=== PATIENT | male | born 1975 | race Caucasian/White ===

== ENCOUNTER 2016-03-01 14:25 | Emergency (ER) | payer OTHER ==
[2016-03-01 17:10] LABS: SPECIFIC GRAVITY 1.025 (1.001-1.030); URINE BILIRUBIN NEGATIVE (NEGATIVE); URINE BLOOD NEGATIVE (NEGATIVE); URINE GLUCOSE (UA) NEGATIVE (NEGATIVE); URINE LEUKOCYTE ESTERASE NEGATIVE (NEGATIVE); URINE NITRITE NEGATIVE (NEGATIVE); URINE PROTEIN NEGATIVE (NEGATIVE); URINE UROBILINOGEN 1 mg/dL (0-1 mg/dl)
[2016-03-01 17:12] LABS: URINE APPEARANCE CLEAR; URINE COLOR AMBER
--- NOTE | 2016-03-01 17:18 | CT ---
Exam Type: ABD/PELVIS W/O CON Date and Time: 03/01/2016 4:51 PM Clinical information: Umbilical pain after lifting injury. Comparison: 08/25/2015. Procedure: Imaging device: [employer] Aquilion [address] scanner 1 mm axial images were obtained through the abdomen and pelvis. Stacked reconstructed 3, 4 and 5 mm images were photographed in the axial coronal and sagittal planes. No oral contrast was utilized for this examination. Exam: Without intravenous contrast. FINDINGS: Lung bases:The visualized lung bases appear to be appropriate with no mass, effusion or consolidation visualized. Liver: the liver is homogeneous with no discrete abnormality visualized. No definite findings of biliary dilatation are observed. Spleen: The spleen is homogeneous and does not appear to be enlarged. Gallbladder: Contracted. Pancreas: Normal without enlargement or evidence of adjacent inflammatory changes. Adrenal glands: Normal without enlargement or evidence of adjacent inflammatory changes. Abdominal aorta: The aorta is of normal caliber and appears to be without significant atherosclerotic disease. Kidneys: The kidneys appear to be symmetric in size with no perinephric inflammatory changes are identified. No current findings of hydronephrosis are seen. No evidence of an intrarenal or intraureteral calculus is visualized. Bowel structures: The visualized bowel is of normal caliber without evidence of dilatation or obstruction. No free fluid or mesenteric inflammatory changes are identified. Appendix: The appendix is well-visualized and appears to be of normal caliber. No periappendiceal inflammatory changes or CT findings of appendicitis are currently observed. Bladder: Partially decompressed. There is secondary accentuation of the bladder wall. Hernia: A small fat filled left inguinal hernia suggested. There is also a fat filled umbilical hernia with the aperture measuring approximately 14 mm transversely. Adenopathy: No significant enlarged adenopathy is visualized. Osseous structures: Multilevel lumbar degenerative changes are present with endplate Schmorl's node formation. Pelvic structures: No discrete pelvic abnormalities are visualized in this examination. IMPRESSION: 1. No evidence of an intrarenal or intraureteral calculus observed. 2. A normal appearance of the appendix without CT evidence of appendicitis. 3. Small fat filled left inguinal and umbilical hernias. 4. Multilevel lumbar discogenic degenerative changes. 5. Circumferential thickening of the bladder wall likely due to partial decompression.
== END 2016-03-01 17:51 | disposition home or self-care (01) ==
LOC: ED 14:25
DX: K42.9 Umbilical hernia without obstruction or gangrene (principal); Z87.891 Personal history of nicotine dependence

== ENCOUNTER 2016-06-08 07:42 | Day surgery (SDC) | payer OTHER ==
[~2016-06-08 07:42] MED LIST: CEFAZOLIN SODIUM 2 GRAM PREMIX 100 ML IV ONE; CEFAZOLIN SODIUM 2 GRAM PREMIX 100 ML IV PRN; IV START KIT ONE; LACTATED RINGERS 1,000 ML ONE
[2016-06-08] MEDS ORDERED: MIDAZOLAM HCL 1 MG/ML 2ML VIAL ONE (07:57)
[2016-06-08] MEDS ORDERED: SUCCINYLCHOLINE CHL 20 MG/ML DOSE ONE (07:57)
[2016-06-08] MEDS ORDERED: FENTANYL 100 MCG/2 ML VIAL ONE ×3 (07:57→09:58)
[2016-06-08] MEDS ORDERED: LIDOCAINE 2% (PRES FREE) 5 ML VIAL ONE ×2 (07:57→10:35)
[2016-06-08] MEDS ORDERED: PROPOFOL 40 ML IV ONE (07:57)
[2016-06-08] MEDS ORDERED: PHENYLEPHRINE 10 MG/1 ML (1%) VIAL ONE (07:58)
[2016-06-08] MEDS ORDERED: BUPIVACAINE 0.5% (PRES FREE) 30 ML VIAL ONE (08:07)
[2016-06-08] MEDS ORDERED: BUPIVACAINE 0.5% W/EPI SDV 30 ML VIAL ONE ×2 (08:07→10:09)
[2016-06-08] MEDS ORDERED: CEFAZOLIN SODIUM 1,000 MG VIAL ONE (08:07)
[2016-06-08] MEDS ORDERED: KETAMINE HCL UD SYRINGE 100 MG/2 ML IV ONE (08:59)
[2016-06-08] MEDS ORDERED: DEXAMETHASONE SOD PHOS 4 MG/1 ML VIAL ONE (09:07)
[2016-06-08] MEDS ORDERED: SODIUM CHLORIDE 0.9% FLUSH 10 ML ONE (09:08)
[2016-06-08] MEDS ORDERED: EPHEDRINE SULFATE UD SYR 25 MG 25 MG/5 ML SYRINGE IV ONE ×2 (09:11→09:46)
[2016-06-08] MEDS ORDERED: NALOXONE HCL 0.4 MG/ML VIAL IV PRN (09:21)
[2016-06-08] MEDS ORDERED: ONDANSETRON 4 MG/2ML 2 ML VIAL IV PRN ×2 (09:21→11:31)
[2016-06-08] MEDS ORDERED: LABETALOL HCL 5 MG/ML 20ML VIAL IV PRN (09:21)
[2016-06-08] MEDS ORDERED: HYDROMORPHONE HCL 1 MG/ML SYRINGE IV PRN (09:21)
[2016-06-08] MEDS ORDERED: ATROPINE SULFATE 0.4 MG/1 ML VIAL IV PRN (09:21)
[2016-06-08] MEDS ORDERED: MEPERIDINE 25 MG/ML SYRINGE IV PRN (09:21)
[2016-06-08] MEDS ORDERED: PROMETHAZINE HCL 25 MG/ML VIAL IM PRN (09:21)
[2016-06-08] MEDS ORDERED: FENTANYL 100 MCG/2 ML VIAL IV PRN (09:21)
[2016-06-08] MEDS ORDERED: HYDRALAZINE HCL 20 MG/1 ML VIAL IV PRN (09:21)
[2016-06-08] MEDS ORDERED: LACTATED RINGERS 1,000 ML IV SCH (09:30)
[2016-06-08] MEDS ORDERED: ONDANSETRON 4 MG/2ML 2 ML VIAL ONE (10:29)
[2016-06-08] MEDS ORDERED: KETOROLAC TROMETHAMINE 30 MG/ML 1 ML VIAL ONE (10:31)
[2016-06-08] MEDS ORDERED: MORPHINE SULFATE 2 MG/ML SYRINGE IV PRN (11:31)
[2016-06-08] MEDS ORDERED: OXYCODONE/ACETAMINOPHEN 5/325 MG TABLET PO PRN (11:31)
[2016-06-08] MEDS ORDERED: ACETAMINOPHEN 160 MG/5 ML ORAL.SOLN UDCUP PO PRN (11:31)
[2016-06-08] MEDS ORDERED: KETOROLAC TROMETHAMINE 30 MG/ML 1 ML VIAL IV PRN (11:31)
[2016-06-08] MEDS ORDERED: MORPHINE SULFATE 4 MG/ML SYRINGE IV PRN (11:51)
[2016-06-08] MEDS ORDERED: MORPHINE SULFATE 10 MG/ML SYRINGE IV PRN (11:52)
[2016-06-08] MEDS ORDERED: OXYCODONE/ACETAMINOPHEN 5/325 MG TABLET ONE (11:55)
[2016-06-08] MEDS ORDERED: MORPHINE SULFATE 10 MG/ML SYRINGE ONE (12:25)
--- NOTE | 2016-06-08 17:41 | OP ---
BOBBI JONES [id number] DATE OF OPERATION: June 08, 2016 PREOPERATIVE DIAGNOSES: 1. Umbilical hernia. 2. Left inguinal hernia. POSTOPERATIVE DIAGNOSIS: 1. Umbilical hernia. 2. Left inguinal hernia. PROCEDURES: 1. UMBILICAL HERNIA REPAIR WITH SMALL VENTRALEX MESH PATCH. 2. LEFT INGUINAL HERNIA REPAIR WITH MESH PLUG TIMES TWO AND PATCH. SURGEON: Case Arnold M.D. GRAPE GROWER: Fela Hewitt ANESTHESIA: General endotracheal. INDICATIONS: This is a 41-year-old male who presents for elective repair of a symptomatic umbilical hernia and left inguinal hernia. DESCRIPTION: With informed consent he was taken to the operating room where he was laid supine on the operating room table. General endotracheal anesthetic was administered. The abdomen and groin were prepped and draped in the usual fashion. Local anesthetic was administered in the left groin. Incision was made. Electrocautery was used to divide the subcutaneous fat. I dissected down to the fascia. Some larger veins above the fascia were cauterized and divided. The fascia was opened with a knife and Metzenbaum scissors in a fiber splitting technique. There was actually an ilioinguinal nerve coming out through the mid portion of the external oblique, and it was going to clearly be tethered and in the way during the case, and I decided to lyse this. Cord structures were encircled at the level of the pubic tubercle with a Mary drain. There was a large direct fatty defect. This was dissected free from the cord structures. It was incised at the level of the floor of the canal getting into a preperitoneal plane. I also identified a lipomatous lesion within the cord structures. This was excised at the level of the internal ring. No clear indirect sac was seen. I ended up putting two extra large mesh plugs into the floor of the canal. These were secured together with #2-0 Vicryl. They were secured circumferentially with #2-0 Vicryl. A flat piece of mesh was then placed across the floor of the canal. The medial aspect overlapped the pubic tubercle. A slit was cut laterally and this was secured around the cord structures recreating an internal ring. Vicryl was used to secure the mesh laterally. This was placed up beneath the external oblique. The wound was irrigated. We appeared to have adequate hemostasis. The external oblique was reapproximated with some #2-0 Vicryl. Some additional local anesthetic was administered below the external oblique. Cesar's fascia was reapproximated with #3-0 Vicryl. Skin was closed with a running subcuticular #4-0 Monocryl. A curvilinear incision was drawn on the skin below the umbilicus. Local anesthetic was administered. An incision was made. Electrocautery was used to divide the subcutaneous fat. We dissected down to the fascia. We opened into a hernia sac. It contained preperitoneal fat. This was all excised at the level of the fascia and then from the umbilical skin. The fascial defect was a little larger than the size of my index finger. I decided to place a small Ventralex mesh patch. This was placed intraabdominally. Care was taken to insure that there were no visceral structures between the mesh and the abdominal wall. It was secured circumferentially with #2-0 Vicryl. The tails were cut away. The wound was irrigated. We appeared to have adequate hemostasis. The umbilical skin was sutured down near the fascia with some #2-0 Vicryl. The subcutaneous tissue was brought together with #2-0 Vicryl. The skin was closed with a running subcuticular #4-0 Monocryl. Skin Affix topical adhesive was placed over both incisions. Dressings were applied. A binder was applied. He tolerated the procedure and was taken to the recovery room in stable condition. Note was made that needle, instrument and lap counts were reported as correct at time of closure. Cc: Tania Potter M.D.
== END 2016-06-08 13:35 | disposition home or self-care (01) ==
LOC: SDC 07:42
PROVIDERS: ATTEND Surgery
PROC: 0YU60JZ Supplement Left Inguinal Region with Synthetic Substitute, Open Approach (ICD-10-PCS; principal; 2016-06-08)
PROC: 0WUF0JZ Supplement Abdominal Wall with Synthetic Substitute, Open Approach (ICD-10-PCS; 2016-06-08)
DX: K40.90 Unilateral inguinal hernia, without obstruction or gangrene, not specified as recurrent (principal); K42.9 Umbilical hernia without obstruction or gangrene; E66.01 Morbid (severe) obesity due to excess calories; Z68.42 Body mass index [BMI] 45.0-49.9, adult
CPT/HCPCS: 49505; 49585; J0690 ×2; J3010 ×3; J1100; J2270; J2370; A9270; J1885; J2250; J2405; J7120